=== PATIENT | male | born 1975 | race Hispanic/Latino ===

== ENCOUNTER 2018-08-06 16:59 | Emergency (ER) | payer BC ==
[~2018-08-06] VITALS: Ht 180.3 cm; Wt 113.4 kg
[2018-08-06] MEDS ORDERED: CLONIDINE HCL 0.2 MG TAB PO ONE (18:00)
[2018-08-06] MEDS ORDERED: CLINDAMYCIN 600MG / 50ML 50 ML IV ONE (19:00)
[2018-08-06 19:05] VITALS: BP 177/93
== END 2018-08-06 19:07 | disposition home or self-care (01) ==
LOC: FSED 16:59
DX: L03.211 Cellulitis of face (principal); I10 Essential (primary) hypertension
CPT/HCPCS: 80053; 85025; 99284

== ENCOUNTER 2019-02-06 21:54 | Emergency (ER) | payer BC, SELFPAY ==
[~2019-02-06] VITALS: Ht 180.3 cm; Wt 122.5 kg
[2019-02-06 22:31] VITALS: BP 152/94
== END 2019-02-06 22:32 | disposition home or self-care (01) ==
LOC: FSED 21:54
DX: S90.415A Abrasion, left lesser toe(s), initial encounter (principal); Y93.E8 Activity, other personal hygiene; Y92.513 Shop (commercial) as the place of occurrence of the external cause
CPT/HCPCS: 99282